=== PATIENT | female | born 1975 | race Caucasian/White ===

== ENCOUNTER 2018-10-15 12:58 | Emergency (ER) | payer MEDICAID ==
[~2018-10-15] VITALS: Ht 160 cm; Wt 73.2 kg
[2018-10-15 13:13] VITALS: BP 106/77
[2018-10-15] MEDS ORDERED: ketorolac trometh inj. 60 MG/2 ML VIAL IM ONE (15:30)
== END 2018-10-15 15:42 | disposition home or self-care (01) ==
LOC: ER 12:58
DX: R07.81 Pleurodynia (principal); Y04.0XXA Assault by unarmed brawl or fight, initial encounter; Y93.89 Activity, other specified; Y92.89 Other specified places as the place of occurrence of the external cause; Y99.8 Other external cause status
CPT/HCPCS: 71046; 96372; 99283; J1885

== ENCOUNTER 2025-08-10 04:55 | Emergency (ER) | payer MEDICAID ==
[~2025-08-10] VITALS: Ht 160 cm; Wt 83.5 kg
--- NOTE | 2025-08-10 05:37 | Physician Documentation ---
History of Present Illness ~ Chief Complaint: Chest Pain Stated Complaint: CHEST PAINS Time Seen by MD: 05:14 Source: patient Mode of Arrival: POV Exam Limitations: no limitations HPI Chief Complaint: Chest pain Caveat: None Independent Historians: None History of Present Illness: Patient is a 50-year-old woman with a history of hypothyroidism who comes in complaining of left-sided chest pain that began two nights ago. Initially was intermittent. She describes it as tightness. Patient's pain is currently 8/10. Last night when she got out of the shower at about 9:00 p.m. the pain became worse and more persistent. Pain has been constant this morning. Pain is worse when she takes a deep breath. No al leviating factors. No nausea or vomiting. No abdominal pain. Patient denies any fever cough. Review of systems: All systems were reviewed and are negative except for what is indicated in the history of present illness. Past Medical History: Hypothyroidism Past Surgical History: None Social History: No tobacco use, no alcohol use, no drug use Medications: Reviewed as documented Nursing Notes Allergies: Reviewed as documented in Nursing Notes Medication Reconciliation Allergies: Coded Allergies: No Known Allergies (Unverified , 10/15/18) Past Medical History Past Medical History: No Pertinent History Past Surgical History: noncontributory Lives with: S/O Lives In: Home Review of Systems All Other Systems at this time: Reviewed and Negative ROS Patient denies any other acute symptoms other than above. All other systems are negative Physical Exam Vital Signs: RN Vital Signs have been reviewed: Yes, Temperature: 97.8, Source: Temporal, Heart Rate: 106, Respiratory Rate: 16, BP: 118/74, Pulse Oximetry: 96, Weight: 83.450 Oxygen Flow Rate: 0 Pulse Oximetry Reflects: adequate oxygenation Physical Exam General Appearance: No distress but mild distress when she takes a deep breath HEENT: Normal OP, moist oral mucosa, PERRL, EOMI Neck: supple, normal ROM, trachea midline Pulmonary: No respiratory distress, CTA, BS equal Cardiac: RRR, no murmur, rub or gallop, GI: nondistended, soft, nontender, normal bowel sounds, no guarding, no rebound Extremities: normal ROM, no swelling, non-tender, calves are soft and nontender Skin: intact, dry, warm, no rashes Neuro: AAOx3, speech is clear, no focal motor weakness Psych: normal affect, good eye contact, no apparent hallucination, normal speech Progress Results/Orders Results/Orders Completed Orders - ZULEIMA NOEL MD CMP (08/10/25 05:15) D-Dimer (08/10/25 07:46) Vital Signs 08/10/25 08/10/25 08/10/25 08/10/25 04:56 05:30 05:50 06:25 Temp 97.8 Pulse 106 89 87 Resp 16 16 16 11 B/P (MAP) 118/74 110/68 (82) 108/78 (88) Pulse Ox 96 99 98 O2 Flow Rate 0 0 0 Laboratory Tests Test 08/10/25 05:26 08/10/25 05:57 08/10/25 07:00 White Blood Count 9.7 Red Blood Count 4.48 Hemoglobin 14.0 Hematocrit 41.4 Mean Corpuscular Volume 92.5 Mean Corpuscular Hemoglobin 31.2 H Mean Corpuscular Hemoglobin Concent 33.7 Red Cell Distribution Width 13.7 Platelet Count 354 Mean Platelet Volume 7.2 L Neutrophils (%) (Auto) 51.4 Lymphocytes (%) (Auto) 34.0 Monocytes (%) (Auto) 9.9 Eosinophils (%) (Auto) 3.3 Basophils (%) (Auto) 1.4 H Neutrophils # (Auto) 5.0 Lymphocytes # (Auto) 3.3 Monocytes # (Auto) 1.0 H Eosinophils # (Auto) 0.3 Basophils # (Auto) 0.1 CBC Comment D-Dimer 0.40 D-Dimer Comment Sodium Level 141 Potassium Level 4.0 Chloride Level 107 Carbon Dioxide Level 28.2 Anion Gap 6 L Blood Urea Nitrogen 17 Creatinine 0.72 Estimated GFR/1.73 m2 86 BUN/Creatinine Ratio 23.6 H Glucose Level 117 H Calcium Level 8.4 L Total Bilirubin 0.2 Aspartate Amino Transf (AST/SGOT) 29 Alanine Aminotransferase (ALT/SGPT) 59 Alkaline Phosphatase 89 Troponin I High Sensitivity 5 5 Pro-B-Type Natriuretic Peptide < 30 Total Protein 7.0 Albumin 3.4 Globulin 3.6 Albumin/Globulin Ratio 0.9 L Chemistry Comments Troponin I High Sens Percent Delta 0 Troponin I Hi Sens Absolute Change 0 Medical Decision Making Additional info obtained from: old records Findings Differential diagnosis includes but is not limited to: Acute coronary syndrome, pulmonary embolus, aortic dissection, pneumothorax, pneumonia, pleurisy, COPD EKG independent interpretation: Performed at 5:06 a.m.. Sinus tachycardia, heart rate 104, normal axis nonspecific ST segments prolonged QT Chest x-ray, single view, indication: Chest pain Independent interpretation: Lungs are clear, normal mediastinum, normal cardiac silhouette. No acute cardiopulmonary process. Laboratory data independent interpretation: CBC: Unremarkable CMP: Unremarkable 1st troponin: 5 2nd troponin: 5 D-dimer: 0.40 Pro BNP: <30 Emergency department course/medical decision-making: Patient presents with pleuritic chest pain on the left. Pulmonary embolus has been ruled out with a negative D-dimer. Cause for her chest pain is unknown. Acute coronary syndrome is unlikely given her heart score and negative troponins. Recommend she follow up with your primary care doctor for outpatient cardiac stress test. Test results, treatment plan in the importance for the stress test is reviewed with the patient. Patient is instructed to take one baby aspirin a day. Patient is also given Toradol 15 mg IV. Heart Score: 3 Differential Dx:Considerations: Include: other (See above) Departure Time of Disposition: 08:17 Disposition: 01 HOME / SELF CARE / HOMELESS Impression: Primary Impression: Pleuritic chest pain Condition: Stable Discharge Instructions: Nonspecific Chest Pain, Adult, Pleurisy, Whef-wx-Tort Additional Instructions: THE CAUSE FOR YOUR CHEST PAIN IS UNKNOWN. IT IS CONSISTENT WITH PLEURISY BUT AGAIN THE CAUSE IS UNKNOWN AT THIS TIME. CORONARY ARTERY DISEASE HAS NOT BEEN RULED OUT BUT ISN'T THOUGHT TO BE SECONDARY OR THE CAUSE OF YOUR PAIN TODAY. HOWEVER I RECOMMEND YOU FOLLOW UP WITH YOUR PRIMARY CARE DOCTOR FOR A CARDIAC STRESS TEST AN OUTPATIENT SOON POSSIBLE. RETURN TO THE EMERGENCY DEPARTMENT IF YOUR SYMPTOMS ARE WORSE TAKE A BABY ASPIRIN A DAY AND YOU MAY ALSO TAKE MOTRIN 600 MG WITH FOOD FOR YOUR PAIN. Education Educated: Patient Educated regarding: diagnosis, treatment, need for follow up Signature Scribe Signature: NO SCRIBE Attestation: NO SCRIBE ZULEIMA NOEL MD Aug 10, 2025 05:37
--- NOTE | 2025-08-10 05:40 | ELECTROCARDIOGRAPH REPORT ---
[facility] Test Date: 2025-08-10 Test Time: 05:06:07 Pat Name: YOUNG UREÑA Department: EMERGENCY ROOM Room: Gender: F Order Manager: WILLIAM : 1975 Requested By: GÉNESIS GA Order Number: [id number] Reading MD: Measurements Intervals [place] Rate: 104 P: 61 [place]: 162 QRS: 45 QRSD: 63 T: 73 QT: 391 QTc: 515 Interpretive Statements Sinus tachycardia Probable left atrial enlargement Low voltage, precordial leads Borderline T abnormalities, anterior leads Prolonged QT interval Baseline wander in lead(s) II,V3 Please click the below link to view image of tracing.
[2025-08-10 05:58] LABS: MEAN PLATELET VOLUME 7.2 FL (7.4-10.4); RED CELL DISTRIBUTION WIDTH 13.7 % (11.5-14.5)
[2025-08-10 06:23] LABS: CREATININE 0.72 MG/DL (0.40-0.90); TOTAL CARBON DIOXIDE 28.2 MMOL/L (24-32); eCRCL 79 ML/MIN; eGFR 86 ML/MIN
[2025-08-10 06:31] LABS: PRO BRAIN NATRIURETIC PEPTIDE < 30 PG/ML (0-125)
--- NOTE | 2025-08-10 06:36 | RADIOLOGY REPORT ---
CHEST RADIOGRAPH Indication: CP Technique: Single frontal view of the chest was obtained Comparison: None FINDINGS: Lines and Tubes: None Lungs: No focal consolidation. Pleura: No effusion. No pneumothorax. Cardiomediastinal contours: Unremarkable Bones: No acute osseous abnormality. IMPRESSION: 1. No acute cardiopulmonary disease.
[2025-08-10 08:22] VITALS: TEMP 97.8
[2025-08-10] MEDS: ketorolac trometh 15mg/ml vial 15 MG/ML ML IV ONE (08:22)
[2025-08-10 08:56] VITALS: BP 112/63; PULSE 82; RESP 13; O2SAT 97
== END 2025-08-10 09:03 | disposition home or self-care (01) ==
LOC: ER 04:55
DX: R07.81 Pleurodynia (principal); R06.02 Shortness of breath; E03.9 Hypothyroidism, unspecified
CPT/HCPCS: 36415; 71045; 80053; 83880; 84484; 85025; 85379; 93005; 96374; 99285; J1885; J7030